=== PATIENT | male | born 1945 | race Caucasian/White ===

== ENCOUNTER → 2024-06-15 06:43 | Outpatient (REF) | payer MEDICARE, OTHER, SELFPAY | LOC: PAVMRI 06:43 | PROVIDERS: ATTENDING PHYSICIAN Family Medicine | DX: M54.16 Radiculopathy, lumbar region (principal) | CPT/HCPCS: 72148 ==

== ENCOUNTER 2024-07-02 18:16 | Emergency (ER) | payer MEDICARE, OTHER, SELFPAY ==
[2024-07-02 18:24] VITALS: BP 163/83
[2024-07-02 18:30] LABS: Glucose - Point of Care 98 mg/dl (70-99)
[2024-07-02 18:35] VITALS: BP 137/72
--- NOTE | 2024-07-02 18:42 | ED.CVA ---
History of Present Illness
General
Chief Complaint: CVA/TIA Symptoms
Source: patient
Exam Limitations: none
Time Seen by Provider: 07/02/24 18:30
Nursing documentation reviewed up to this point in time: agreed with
Onset of Stroke Symptoms
Onset of symptoms known: No
Time pt last seen normal is known: No
History of Present Illness
History of Present Illness:
79-year-old male with a past medical history of hypertension, hyperlipidemia, diabetes, BPH who presents to the emergency room with his and son for evaluation of memory issues. Patient reports that he was in his normal state of health when he
woke up this morning. His says that this evening she noticed that he was having difficulty remembering things�apparently they are scheduled to go on a golf trip in [place] in 3 weeks and patient completely forgot about the trip. Apparently he
went to the bank today and forgot about this. Apparently had a conversation with multiple people and could not recall them. brought him to the emergency room to be assessed. She offers that once she reminded the patient of these things his
memory seems to have returned. Patient says that he feels well he has no complaints here. He denies any headache. Denies any neck pain. Denies any change in his vision or speech. He denies any weakness or numbness in his extremities. He denies
any dizziness or balance issues. He says 'I am not known for my memory.'
Past History
Past History
ED Past Medical History: HTN, Hypercholesterolemia and NIDDM
ED Past Surgical History: Cholecystectomy and Other (Hernia repair, Abd wall repair X 2)
Social History
Tobacco: Non-smoker
Alcohol: None
Personal:
Living: with family
Review of Systems
Review of Systems
All Other Systems: ROS reviewed and negative except as documented in HPI and ROS
Constitutional: Denies fever or chills
Respiratory: Denies cough or trouble breathing
Cardiac: Denies chest pain or palpitations
ABD/GI: Denies abdominal pain, nausea or vomiting
: Denies flank pain
Musculoskeletal: Denies neck pain or back pain
Neurological: Reports other (Memory issue); Denies dizzy, headache, weakness or numbness
Phy Exam
Physical Exam
Physical Exam:
General: Awake, alert, oriented x3; no acute distress
Head: Normocephalic, atraumatic
Eyes: Conjunctiva normal, EOMI, pupils equal round and reactive to light bilaterally
Throat: Airway intact, handling secretions
Neck: Trachea midline, supple without meningismus
Lungs: Clear to auscultation bilaterally, no wheezing, rales, rhonchi
Heart: Regular rate and rhythm, no murmurs, gallops, or rubs
Abd: Soft, non distended, nontender
Neuro: Cranial nerves intact 2 through 12, speech is fluid with no dysarthria or aphasia, no limb ataxia in the upper or lower extremities, motor and sensory function is intact and symmetric upper and lower extremities
Skin: no rash
Extremities: No edema in extremities, equal pulses in all extremities
Scores
NIH Stroke Score
Level of Consciousness: 0 - Alert
LOC Questions: 0-Answers both correctly
LOC Commands: 0-Performs both correctly
Best Horizontal Gaze: 0-Normal
Visual Castaneda: 0=Normal, no visual loss
Facial Palsy: 0=Normal, symmetrical
Motor - Right Arm: 0=No drift 10 seconds
Motor - Left Arm: 0=No drift 10 seconds
Motor - Right Le-No drift 5 seconds
Motor - Left Le-No drift 5 seconds
Limb Ataxia: 0-Absent
Sensation: 0-Normal
Best Language: 0-No aphasia
Dysarthria: 0-Normal
Extinction and Inattention: 0-No abnormality
Total Score:: 0
Heart Failure Risk
Heart Failure Risk Score: Not Applicable
Heart Score for Chest Pain Patients
STEMI patient?: Not applicable
Withdrawal Assessment of Alcohol
Withdrawal Assessment Completed?: Not applicable
Course
Orders/Labs/Results
Orders:
Orders
07/02/24 18:43
CT Head W/o Iv Contrast Urgent
Comment:
Reason For Exam: cognitive/memory issues, acute onset
07/02/24 18:46
Complete Blood Count/With Diff Urgent
Comprehensive Metabolic Panel Urgent
07/02/24 18:56
Electrocardiogram (*1) Urgent
Reason for Study: TIA/Stroke
NEUROLOGY CONSULT Urgent
Consulting Provider: Vinny Giraldo
Was physician already notified: Yes
EKG- Treatment ONCE
Abnormal Lab Results
07/02/24
18:46
MCH 31.5 H pg
(27.0-31.0)
Absolute Monos (auto) 1.1 H 10^3/uL
(0.1-0.6)
Monocytes % 11.0 H %
(1.7-9.3)
BUN 25 H mg/dl
(9-20)
Glucose 102 H mg/dl
(70-99)
Calcium 10.9 H mg/dl
(8.4-10.2)
07/02/24 18:46
07/02/24 18:46
Vital Signs
Initial and Last Documented VS:
Initial Vital Signs
Temp Pulse Resp BP Pulse Ox
36.9 C 58 18 163/83 96
07/02/24 18:24 07/02/24 18:24 07/02/24 18:24 07/02/24 18:24 07/02/24 18:24
Last Documented Vital Signs
Temp Pulse Resp BP Pulse Ox
36.9 C 58 11 137/72 96
07/02/24 18:24 07/02/24 18:45 07/02/24 18:45 07/02/24 18:35 07/02/24 18:45
MDM/Problems Addressed
Differential Diagnosis Includes:
Stroke/TIA, transient global amnesia, seizure, mild dementia, simple forgetfulness
MDM/Problems Addressed:
79-year-old male presents for evaluation after memory issues as described above. He feels well here denies acute complaints. Hypertensive in triage normalized by my assessment, otherwise normal vitals. Physical exam as above. With no reported
symptoms or objective deficits no stroke alert called. NIH stroke score would be 0. Will check basic screening labs, CT head. Case discussed with neurology for assessment.
Initial labs reviewed and are unremarkable. Awaiting CT head. Neurology evaluated patient�apparently symptoms started after sex, per neurology postcoital memory issues not uncommon and suspect this is likely the cause. If CT negative can be
discharged.
CT head negative. Patient awake and alert at baseline, normal vitals. Discussed with neurology okay for discharge can follow-up as an outpatient with his primary doctor. Spoke to patient and about return precautions including recurrence of
symptoms or any other issues. All questions answered.
Chronic conditions affecting care:
Hypertension, hyperlipidemia, diabetes�higher risk for stroke
Acute Exacerbation and/or Progression of Chronic Illness:
Acutely hypertensive resolved without intervention�continue to monitor but now additional antihypertensive indicated at present
Acute Exacerbation and/or Progression of Chronic Illness: HTN
*Radiology
Radiology exam reviewed: radiology read reviewed
*Pulse Oximetry
Patient hypoxic: no
*EKG
Interpreted by ED Provider?: Yes
Heart Rate: 57
Rate: bradycardiac
Rhythm: sinus
[place]: left axis deviation
Interval: normal interval
QRS Pattern: normal QRS
Ischemia: other (Nonspecific T wave abnormality)
*Critical Care Note
Total Time (30-74mins, 75-104mins- exclusive of procedures): Not Applicable
Data Reviewed
Review of Other/Old Records Reveals: Labs and Records
Source: patient and records
Patient Management
Discussion with other providers: Processor Helper (Discussed with neurology)
ED Attending Note
-
Portions of this chart may have been created with voice recognition software.� Occasional wrong word or��sound alike� substitutions may have occurred due to the inherent limitations of voice recognition software.
Discharge Plan
Departure
Patient Disposition: Home (Routine Discharge)
Date of Disposition: 07/02/24
Time of Disposition: 20:23
Patient with high blood pressure during this ER visit?: Yes
Discharge Problem:
Transient memory loss
Instructions: Mild cognitive impairment
Prescriptions:
No Action
lisinopril 20 MG tablet
20 mg PO DAILY
finasteride 5 MG tablet
5 mg PO DAILY
glipizide 5 MG tablet
5 mg PO DAILY
coenzyme Q15-jtuounc E 1 CAP capsule
200 mg PO DAILY
fenofibric acid (choline) 135 MG capsule,delayed release(DR/EC)
135 mg PO DAILY
Systane Balance 10 ML drops
1 drp BOTH EYES BID
Myrbetriq 50 MG tablet extended release 24 hr
50 mg PO DAILY
PreserVision AREDS-2 1 EACH capsule
1 ea PO BID
amlodipine 5 MG tablet
5 mg PO DAILY
multivitamin with folic acid [Tab-A-Briana] 1 TABLET tablet
1 tab PO DAILY
Nexletol
180 mg PO DAILY
magnesium
1 tab PO DAILY
pantoprazole 40 MG tablet,delayed release (DR/EC)
40 mg PO DAILY
ondansetron 4 mg tablet,disintegrating
4 mg PO Q8H PRN (Reason: nausea and vomiting) Qty: 7 0RF
ibuprofen 400 mg tablet
400 mg PO Q6H PRN (Reason: Pain) Qty: 14 0RF
oxycodone-acetaminophen [Percocet] 5-325 mg tablet
1 tab PO Q6H PRN (Reason: Pain) Qty: 7 0RF
Activity Restrictions/Additional Instructions:
Thank you for visiting the Emergency Department at [facility].
1. Please schedule a follow up appointment as directed. Call first thing tomorrow morning to make an appointment.
2. If indicated, please take your medications as instructed and indicated on discharge paperwork.
3. If any of your symptoms do not improve, or persist, or become more severe within 6-12 hours, please return to the emergency department for further care.
4. Please return to the emergency department if you develop a headache, neck pain/stiffness, fever greater than 100.4F, chest pain, shortness of breath, persistent nausea, vomiting, slurred speech, difficulty walking, numbness/tingling, weakness,
signs of infection or any other symptoms that are worrisome to you.
Please call [phone] if you have any questions.
Interventions
Interventions:
*Risk Screen - Suicide Last Done: 07/02/24 18:24
*General Assessment Last Done: 07/02/24 18:24
*Neglect/Abuse Screening Last Done: 07/02/24 18:24
ED- Pulmonary Assessment Last Done: 07/02/24 18:43
ED- Neurological Assessment Last Done: 07/02/24 18:43
ED- Cardiac Assessment Last Done: 07/02/24 18:43
Discharge Date and Time
Print Language: AMHARIC
[2024-07-02 18:50] LABS: % Basophils 0.9 % (0-2); % Eosinophils 5.8 % (0-6); % Immature Granulocytes 0.4 % (0-0.5); % Lymphocytes 28.5 % (20.5-51.1); % Neutrophils 53.4 % (42.2-75.2); Absolute Basophils 0.1 10^3/uL (0-0.2); Absolute Eosinophils 0.6 10^3/uL (0-0.7); Absolute Lymphocytes 2.7 10^3/uL (1.2-3.4); Absolute Monocytes 1.1 10^3/uL (0.1-0.6); Absolute Neutrophils 5.1 10^3/uL (1.4-6.5); Hematocrit 44.7 % (39.0-52.0); Hemoglobin 15.4 g/dL (13.0-18.0); Mean Corp Hgb Conc. 34.5 g/dL (33.0-37.0); Mean Corpuscular Hgb 31.5 pg (27.0-31.0); Mean Corpuscular Volume 91.4 fL (80.0-94.0); Mean Platelet Volume 10.1 fL (7.4-10.4); Nucleated Red Blood Cells % 0 % (-); Platelet Count 256 10^3/uL (130-400); Red Blood Cell Count 4.89 10^6/uL (4.70-6.10); Red Cell Dist. Width 13.3 % (11.5-14.5); White Blood Cell Count 9.5 10^3/uL (4.8-10.8)
[2024-07-02 19:00] VITALS: BP 142/70
[2024-07-02 19:07] LABS: ALT (SGPT) 26 U/L (0-50); AST (SGOT) 30 U/L (17-59); Albumin 4.7 g/dl (3.5-5.0); Alkaline Phosphatase 70 U/L (38-126); Blood Urea Nitrogen 25 mg/dl (9-20); Calcium 10.9 mg/dl (8.4-10.2); Carbon Dioxide 26 mmol/L (22-30); Chloride 105 mmol/L (98-107); Glucose 102 mg/dl (70-99); Potassium 4.1 mmol/L (3.5-5.1); Sodium 138 mmol/L (135-145); Total Bilirubin 0.4 mg/dl (0.2-1.3); Total Protein 7.5 g/dl (6.3-8.2); eGFR 55.19
== END 2024-07-02 20:37 | disposition home or self-care (01) ==
LOC: EMR 18:16
PROVIDERS: CONSULT PHYSICIAN Psychiatry & Neurology Neurology; EMERGENCY PHYSICIAN Emergency Medicine; FAMILY PHYSICIAN Family Medicine
DX: R41.3 Other amnesia (principal); I10 Essential (primary) hypertension; E78.00 Pure hypercholesterolemia, unspecified; E11.9 Type 2 diabetes mellitus without complications; N40.0 Benign prostatic hyperplasia without lower urinary tract symptoms
CPT/HCPCS: 99285; 70450; 80053; 82962; 85025; 93005

== ENCOUNTER 2024-07-10 11:32 | Inpatient (IN) | payer MEDICARE, OTHER, SELFPAY ==
[2024-07-10] VITALS (15 sets, daily range): BP systolic 65–167; BP diastolic 17–80; BMI 27.1; BMI 25.6
[2024-07-10 05:46] LABS: % Basophils 1.1 % (0-2); % Eosinophils 6.2 % (0-6); % Immature Granulocytes 0.4 % (0-0.5); % Lymphocytes 25.7 % (20.5-51.1); % Monocytes 13.8 % (1.7-9.3); % Neutrophils 52.8 % (42.2-75.2); Absolute Basophils 0.1 10^3/uL (0-0.2); Absolute Eosinophils 0.6 10^3/uL (0-0.7); Absolute Lymphocytes 2.4 10^3/uL (1.2-3.4); Absolute Monocytes 1.3 10^3/uL (0.1-0.6); Hematocrit 43.9 % (39.0-52.0); Hemoglobin 14.9 g/dL (13.0-18.0); Mean Corp Hgb Conc. 33.9 g/dL (33.0-37.0); Mean Corpuscular Hgb 32.3 pg (27.0-31.0); Mean Platelet Volume 10.4 fL (7.4-10.4); Nucleated Red Blood Cells % 0 % (-); Platelet Count 240 10^3/uL (130-400); Red Blood Cell Count 4.62 10^6/uL (4.70-6.10); Red Cell Dist. Width 13.2 % (11.5-14.5); White Blood Cell Count 9.5 10^3/uL (4.8-10.8)
[2024-07-10 06:00] LABS: ALT (SGPT) 21 U/L (0-50); AST (SGOT) 24 U/L (17-59); Albumin 4.2 g/dl (3.5-5.0); Alkaline Phosphatase 71 U/L (38-126); Blood Urea Nitrogen 31 mg/dl (9-20); Calcium 10.5 mg/dl (8.4-10.2); Carbon Dioxide 23 mmol/L (22-30); Chloride 108 mmol/L (98-107); Estimated Creatinine Clearance 37 ml/min; Glucose 182 mg/dl (70-99); Potassium 4.1 mmol/L (3.5-5.1); Sodium 138 mmol/L (135-145); Total Bilirubin 0.3 mg/dl (0.2-1.3); Total Protein 6.7 g/dl (6.3-8.2); eGFR 50.49
--- NOTE | 2024-07-10 06:11 | ED.GENMED ---
History of Present Illness
General
Chief Complaint: Rectal Bleeding
Source: patient
Exam Limitations: none
Time Seen by Provider: 07/10/24 05:59
History of Present Illness
History of Present Illness:
See MDM
Past History
Past History
ED Past Medical History: GERD, HTN, Hypercholesterolemia and NIDDM
ED Past Surgical History: Cholecystectomy and Other (Hernia repair, Abd wall repair X 2)
Social History
Tobacco: Non-smoker
Alcohol: None
Personal:
Living: with family
Phy Exam
Physical Exam
Physical Exam:
See MDM
Course
Orders/Labs/Results
Orders:
Orders
07/10/24 05:26
CMP [Comprehensive Metabolic Panel] Urgent
Complete Blood Count/With Diff Urgent
07/10/24 Breakfast
Clear Liquid
Clear Liquids: No red liquids
07/10/24 07:26
Consult Gastroenterology [GASTROINTESTINAL CONSULT] Urgent
Consulting Provider: Jg Guzmán
Was physician already notified: Yes
07/10/24 10:27
IV Insert/Care/Rem.- Treatment PRN
Pantoprazole 80 mg/ 100 mL 8 mg/hr NOW X 1 BAG Pantoprazole 80 mg/100 ml Nss [Protonix] 80 mg in 100 ml IV NOW
Pantoprazole [Protonix IV] 80 mg IV NOW STA
Abnormal Lab Results
07/10/24
05:26
RBC 4.62 L 10^6/uL
(4.70-6.10)
MCV 95.0 H fL
(80.0-94.0)
MCH 32.3 H pg
(27.0-31.0)
Absolute Monos (auto) 1.3 H 10^3/uL
(0.1-0.6)
Monocytes % 13.8 H %
(1.7-9.3)
Eosinophils % 6.2 H %
(0-6)
Chloride 108 H mmol/L
(98-107)
BUN 31 H mg/dl
(9-20)
Creatinine 1.4 H mg/dL
(0.7-1.3)
Glucose 182 H mg/dl
(70-99)
Calcium 10.5 H mg/dl
(8.4-10.2)
07/10/24 05:26
07/10/24 05:26
Vital Signs
Initial and Last Documented VS:
Initial Vital Signs
Temp Pulse Resp BP Pulse Ox
97.7 F 59 18 167/73 97
07/10/24 04:28 07/10/24 04:28 07/10/24 04:28 07/10/24 04:28 07/10/24 04:28
Last Documented Vital Signs
Temp Pulse Resp BP Pulse Ox
97.7 F 57 16 131/79 98
07/10/24 04:28 07/10/24 08:17 07/10/24 08:17 07/10/24 08:17 07/10/24 08:17
MDM/Problems Addressed
Differential Diagnosis Includes:
HPI and MDM Narrative:
79-year-old male presenting with mild abdominal cramping that is associated with several episodes of bright red rectal bleeding. Since 3 AM, patient has had about 6 bouts of bloody diarrhea. Patient states majority of the defecation is blood and
clots. He has a history of diverticulosis and history of esophageal ulcer. Patient states this feels similar to her prior episode of esophageal ulcer where he was admitted. He is no longer on NSAIDs and denies being on blood thinners
Patient states his last colonoscopy was about 6 years ago and there was no polyps
Physical exam
General: Well appearing and non-toxic
HEENT: protecting airway
Neck: appears supple
CV: No evidence of cyanosis
Resp: No accessory muscle use
Abd: Non-distended. No significant tenderness elicited
Rectal: External exam within normal limit
Extremities: No deformities
Neuro: alert
Psych: Normal affect
Skin: Intact
Problems Addressed including Acute and Chronic Conditions affecting care:
1. Bright red rectal bleeding
Acuity: acute
Prognosis: stable
Details: Hemoglobin currently stable. However given his prior history, will discuss case with GI. Given no significant abdominal tenderness, CT abdomen/pelvis low yield
Updates
7:30 AM on reevaluation, patient went to have another bowel movement but instead was passing gas which is reassuring. Will have GI evaluate given his prior history
10 AM Case discussed with GI. Given his history and the magalis blood on rectal exam, GI recommending admitting for observation
10:30 AM patient provided a stool sample and it is now consistent with melena. Given his prior history of esophageal ulcer, will start PPI drip. Patient given PPI bolus as well
Differential Diagnosis (but not limited to): Esophageal ulcer, diverticulosis
Testing considered: CT abdomen/pelvis
Drug therapy (if applicable): OTC meds, please see d/c instruction regarding Rx drugs
Amount and/or Complexity of Data Reviewed
Clinical info obtained from: Patient
External data reviewed: Similar episodes in 2020 where he was found to have esophageal ulcer
Labs I independently reviewed (but not limited to): Hemoglobin stable
Radiology: N/A
Pulse Ox: not hypoxic
EKG independently reviewed: N/A
Patcher [place]: N/A
Critical Care: N/A
Risk of Complication:
Social Determinants of health: Good social support
Discussed with other providers: Gastroenterology, hospitalist
Escalation of Care includes Admit/Obs: given the multiple episodes of magalis blood, gastroenterology suggesting admitting
Occasional wrong word or 'sound a like' substitutions may have occurred due to the inherent limitations of voice recognition software. Read the chart carefully and recognize, using context, where substitutions have occurred.
*Critical Care Note
Total Time (30-74mins, 75-104mins- exclusive of procedures): Not Applicable
ED Attending Note
-
Portions of this chart may have been created with voice recognition software.� Occasional wrong word or��sound alike� substitutions may have occurred due to the inherent limitations of voice recognition software.
Discharge Plan
Departure
Patient Disposition: Admit
Date of Disposition: 07/10/24
Time of Disposition: 10:07
Admit to: Med/Surg
Presentation/result/management discussed w/ accepting MD/DO: Hospitalist
Discharge Problem:
Acute lower GI bleeding
Prescriptions:
No Action
lisinopril 20 MG tablet
20 mg PO DAILY
finasteride 5 MG tablet
5 mg PO DAILY
fenofibric acid (choline) 135 MG capsule,delayed release(DR/EC)
135 mg PO DAILY
mirabegron [Myrbetriq] 50 MG tablet extended release 24 hr
50 mg PO DAILY
amlodipine 5 MG tablet
5 mg PO HS
pantoprazole 40 MG tablet,delayed release (DR/EC)
40 mg PO DAILY
glipizide 5 mg Tablet Extended Release 24hr
5 mg PO DAILY
acetaminophen [Tylenol Extra Strength] 500 mg Tablet
1,000 mg PO Q6HPRN PRN (Reason: mild pain)
magnesium oxide 400 mg (241.3 mg magnesium) Tablet
400 mg PO DAILY
coenzyme Q10 [CoQ-10] 100 mg Capsule
100 mg PO DAILY
Systane (PF) 0.4-0.3 % [place]
1 drp BOTH EYES BIDPRN PRN (Reason: dry eyes)
PreserVision AREDS 4,296 mcg-226 mg-90 mg Capsule
1 cap PO BID
icosapent ethyl [Vascepa] 1 gram Capsule
2 g PO BID
dapagliflozin propanediol [Farxiga] 10 mg Tablet
10 mg PO DAILY
Cbd capsule
50 mg PO DAILYPRN PRN (Reason: discomfort)
fluticasone propionate [Flonase] 50 mcg/actuation [place],Suspension
1 spray INTRANASAL DAILYPRN PRN (Reason: conjestion)
Referrals:
Sadi Kuo MD [Family Provider] -
Interventions
Interventions:
*Risk Screen - Suicide Last Done: 07/10/24 04:28
*General Assessment Last Done: 07/10/24 04:28
*Neglect/Abuse Screening Last Done: 07/10/24 04:28
ED- Fall Risk Assessment Last Done: 07/10/24 04:28
*ED COVID-19 Vaccine History Last Done: 07/10/24 04:28
RT-Lffvsl-Lnprrnliyv Assessment Last Done: 07/10/24 05:42
ED- Cardiac Assessment Last Done: 07/10/24 05:42
ED- Pulmonary Assessment Last Done: 07/10/24 05:42
Discharge Date and Time
Print Language: MICRONESIAN
--- NOTE | 2024-07-10 09:43 | CON.GI ---
Addendum entered and electronically signed by Jg Guzmán MD 07/10/24 16:42:
I saw and examined the patient.
The APPLE PACKING HEADER's note was reviewed and I agree with the note.
-- Rectal bleeding. Last colonoscopy 2018-diverticulosis.
--Mild left lower quadrant discomfort
-- History of esophagitis
plan
Likely etiology of rectal bleeding-diverticular disease vs ischemic colitis. Hb stable. Vital stable
Continue monitor Hb
Clear liquid diet
If patient continues to have rectal bleeding will consider CTA vs colonoscopy -inpatient
will follow
Addendum entered and electronically signed by TRISTIN Ford 07/10/24 10:40:
Asked to see patient at 1015. Patient had large BM of soft formed stool that was maroon/red in color. No pain. Visualized stool myself. Will repeat labs. Discussed with Dr. Guzmán. Ok for Pantoprazole 40 mg IV BID. Otherwise as per plan. Type and
Screen being ordered by ER.
Original Note:
Consultation
-
Date/Time Consultation Requested: 07/10/24 07
Date/Time Consultation Performed: 07/10/24 0930
Requesting Provider: Dr. Kimbrough
Performing Provider: Dr. Guzmán/TRISTIN Caceres
Reason for Consultation: rectal bleeding
Medical History
Chief Complaint / HPI
Chief Complaint: rectal bleeding
History of Present Illness:
79-year-old male with past medical history of hypertension, chronic low back pain, diabetes, hyperlipidemia, BPH, kidney stones, diverticulosis, history LA grade C erosive esophagitis (2020) who was on pantoprazole 40 mg daily and does not take any
NSAIDs who presents to the emergency room with acute onset of rectal bleeding. Asked to evaluate for the same. The patient states that he just returned from [facility] from a vacation. On Saturday he started with acute onset of loose stools
approximately 3 times a day. He did have to cancel travel plans up to [facility]. His did go up to [facility] however he stayed home. He states that he would have loose stools with some cramping. He denied any fevers, chills, nausea,
vomiting. He does not recall eating anything spoiled, no new medications. This was not debilitating. He states that last night he awoke approximately 3 AM and thought he had gas. He went to use the restroom however passed bright red blood per
rectum and possibly clots. This happened approximately 3 more times before he proceeded to the emergency room. He states that while he was checking in he had another episode. He does not recall ever seeing any stool mixed in with this. He had 2
more episodes while still in the ER. This happened over a duration of approximately 4 hours. He has not had any further episodes since approximately 7 AM. He has some mild left lower quadrant tenderness but no significant pain. The patient does
have a history of bleeding in the past that was attributed to an upper GI bleed in 2020 time it was melena and he had an EGD that showed LA grade C esophagitis/gastric erosions secondary to NSAID use. Repeat endoscopy documented healing. Patient
denies any chest pain, shortness of breath, dizziness.
Past Medical History
Past Medical History: GERD, HTN, Hypercholesterolemia, IDDM and Other (LA grade C erosive esophagitis, diverticulosis, BPH, chronic back pain, kidney stones)
Past Surgical History: Cholecystectomy and Orthopedic (Back surgery)
Social History
Tobacco: Non-Smoker
Alcohol: None
Drug: None
Personal:
Living: With Family
Employment: Retired
Family History
Family History: Other (Family history gastrointestinal malignancy or IBD)
Allergies / Home Medications
Allergy/AdvReac Type Severity Reaction Status Date / Time
apple Allergy Swelling Verified 07/10/24 04:27
venom-honey bee Allergy localized Verified 07/10/24 04:27
[bee venom (honey bee)] swelling
�Medication �Instructions �Recorded
fenofibric acid (choline) 135 mg 135 mg PO DAILY High cholesterol 10/14/20
capsule,delayed release
finasteride 5 mg tablet 5 mg PO DAILY Urinary issue 10/14/20
lisinopril 20 mg tablet 20 mg PO DAILY Blood pressure 10/14/20
mirabegron 50 mg tablet,extended 50 mg PO DAILY Urinary issue 10/14/20
release 24 hr (Myrbetriq)
amlodipine 5 mg tablet 5 mg PO HS Blood pressure 05/18/21
pantoprazole 40 mg tablet,delayed 40 mg PO DAILY 11/21/22
release
Cbd 50 mg PO DAILYPRN PRN discomfort 07/10/24
acetaminophen 500 mg tablet 1,000 mg PO Q6HPRN PRN mild pain 07/10/24
(Tylenol Extra Strength)
coenzyme Q10 100 mg capsule 100 mg PO DAILY 07/10/24
(CoQ-10)
dapagliflozin propanediol 10 mg 10 mg PO DAILY 07/10/24
tablet (Farxiga)
fluticasone propionate 50 1 spray intranasal DAILYPRN PRN 07/10/24
mcg/actuation nasal conjestion
spray,suspension
glipizide 5 mg tablet, extended 5 mg PO DAILY 07/10/24
release 24 hr
icosapent ethyl 1 gram capsule 2 g PO BID 07/10/24
(Vascepa)
magnesium oxide 400 mg (241.3 mg 400 mg PO DAILY 07/10/24
magnesium) tablet
peg 400-propylene glycol (PF) 0.4 1 drp BOTH EYES BIDPRN PRN dry eyes 07/10/24
%-0.3 % eye drops in a dropperette
(Systane (PF))
vitamins A,C,D-wyzf-pzpcsb 4,296 1 cap PO BID 07/10/24
mcg-226 mg-90 mg capsule
(PreserVision AREDS)
Review of Systems
-
All other systems: A 12 pt ROS was Negative except as stated above in HPI
Vital Signs
Temp Pulse Resp BP Pulse Ox
97.7 F 57 16 131/79 98
07/10/24 04:28 07/10/24 08:17 07/10/24 08:17 07/10/24 08:17 07/10/24 08:17
Physical Exam
Exam
General: No Apparent Distress
HEENT: Anicteric
Respiratory: Clear
Cardiac: Regular Rhythm
GI: Soft, Non Distended, Normal Bowel Sounds and Tender (Mild left lower quadrant tenderness)
Rectal: Red (Alejo red blood on rectal exam, enlarged prostate) and Hem Positive
Musculoskeletal: No Edema
Skin: Warm and Dry
Neuro: AO x 3
Psych: Calm
Results
WBC 9.5 10^3/uL (4.8-10.8) 07/10/24 05:26
Hgb 14.9 g/dL (13.0-18.0) 07/10/24 05:26
Hct 43.9 % (39.0-52.0) 07/10/24 05:26
MCV 95.0 fL (80.0-94.0) H 07/10/24 05:26
Plt Count 240 10^3/uL (130-400) 07/10/24 05:26
Absolute Neuts (auto) 5.0 10^3/uL (1.4-6.5) 07/10/24 05:26
Sodium 138 mmol/L (135-145) 07/10/24 05:26
Potassium 4.1 mmol/L (3.5-5.1) 07/10/24 05:26
Chloride 108 mmol/L (98-107) H 07/10/24 05:26
Carbon Dioxide 23 mmol/L (22-30) 07/10/24 05:26
BUN 31 mg/dl (9-20) H 07/10/24 05:26
Creatinine 1.4 mg/dL (0.7-1.3) H 07/10/24 05:26
Calcium 10.5 mg/dl (8.4-10.2) H 07/10/24 05:26
Total Bilirubin 0.3 mg/dl (0.2-1.3) 07/10/24 05:26
AST 24 U/L (17-59) 07/10/24 05:26
ALT 21 U/L (0-50) 07/10/24 05:26
Alkaline Phosphatase 71 U/L (38-126) 07/10/24 05:26
Diagnostic Image Results:
none
Prior GI Procedures:
EGD 09/11/21 - Normal mucosa was found in the entire esophagus.
- Z-line irregular, 40 cm from the incisors. This was
biopsied with a cold forceps for histology and
evaluation to rule out Nelson's Esophagus.
- Normal mucosa was found in the entire stomach.
Biopsies were taken for Helicobacter pylori testing.
- Bilious gastric fluid. Fluid aspiration performed.
- Normal examined duodenum. Biopsies for evaluation of
celiac disease.
EGD: 05/19/21 - LA Grade C erosive esophagitis with no active
bleeding.
- Z-line irregular, in the distal esophagus.
- Medium-sized hiatal hernia.
- Erythematous mucosa in the stomach. Biopsied.
- Normal examined duodenum.
EGD: 08/20/2019 normal esophagus. Biopsied. Z line irregular, 37 cm from the incisors. Biopsy. Small hiatal hernia. Widely patent and non-obstructing Schatzki ring. Mild antral gastritis. Biopsied. Bilious gastric fluid. Fluid aspiration
performed. Normal examined duodenum. Biopsied.
Path: Mild chronic gastritis. Negative for H. pylori or celiac disease. Negative for intestinal metaplasia and dysplasia. Squamous mucosa with acute erosive esophagitis at the GE junction. Reactive epithelial changes in squamous mucosa of
esophagus.
Colonoscopy:
05/27/2019 diverticulosis in the sigmoid colon, descending colon, and transverse colon. Nonbleeding internal hemorrhoids. Tattoo seen in the sigmoid colon. Tattoo site appeared normal. Examined portion of the ileum normal.
10/27/2010 diverticulosis entire examined colon. Internal hemorrhoids. Ileum normal.
Assessment / Plan
-
79-year-old male with past medical history of hypertension, chronic low back pain, diabetes, hyperlipidemia, BPH, kidney stones, diverticulosis, history LA grade C erosive esophagitis (2020) who was on pantoprazole 40 mg daily and does not take any
NSAIDs who presents to the emergency room with acute onset of rectal bleeding. Asked to evaluate for the same. last night he awoke approximately 3 AM and thought he had gas. He went to use the restroom however passed bright red blood per rectum
and possibly clots. This happened approximately 3 more times before he proceeded to the emergency room. He states that while he was checking in he had another episode. He does not recall ever seeing any stool mixed in with this. He had 2 more
episodes while still in the ER. This happened over a duration of approximately 4 hours. He has not had any further episodes since approximately 7 AM. He has some mild left lower quadrant tenderness but no significant pain. Patient's vital signs
are stable. WBC 9.5, hemoglobin 14.9, hematocrit 43.9, MCV 95.0, MCH 32.3, platelet count 240, sodium 138, potassium 4.1, chloride 108, CO2 23, BUN 31, creatinine 1.4, glucose 182, total bilirubin 0.3, AST 24, ALT 21, alk phos 71. Rectal exam
performed by myself alejo red blood.
Impression:
Rectal bleeding-> acute onset, approximately 3 AM with 7 episodes. Alejo red blood with clots. No antiplatelet therapy or anticoagulation. Mild left lower quadrant tenderness. Loose stools for 2 days leading up to this event.
History of diverticulosis
Prior history of LA grade C erosive esophagitis 2020 and gastric erosions secondary to NSAID use (now off) status post documentation of healing-> currently on PPI
Other Dx:
Hypertension
Diabetes
Hyperlipidemia
BPH
Kidney stones
Chronic low back pain
Plan:
-Given multiple episodes of rectal bleeding with still alejo blood on rectal exam would observe patient, discussed with ER attending who will discuss with internal medicine.
-Would allow clear liquid diet, no reds
-If with signs of active bleeding would proceed with imaging. Would most likely need a nuclear med bleeding study as creatinine clearance 37. Discussed with patient if he has signs of active bleeding to call nursing immediately.
-Repeat CBC every 8 hours
-If patient has no further bleeding and starts to have brown stool would then advance to full liquid diet and low residue diet.
-If with worsening pain would get CT imaging plus or minus contrast given renal status.
-Consider colonoscopy as an outpatient in 8 weeks
-Further recommendations to be forthcoming.
-
-
Thank you for consultation and allowing me to participate in the patient's care. Please call the smoke control supervisor GI physician during the after hours with any questions or concerns.
--- NOTE | 2024-07-10 10:55 | HPS.HSE ---
Family Physician
-
Family Physician: Sadi Kuo
Chief Complaint
-
Rectal bleeding
History of Present Illness
Patient 79 years old male with history of hypertension, diabetes mellitus, hyperlipidemia, BPH, nephrolithiasis, diverticular disease, chronic low back pain, esophagitis, presented to the hospital with bright blood per rectum. Patient was on
vacation to [place] recently and when he came back had some loose stools associated with some abdominal cramping but no fevers or chills but last woke up and started having bright blood per rectum and some clot and it happened several times
throughout the rest of the day so decided to come to the hospital. Denies chest pain or shortness of breath. No anticoagulants or NSAIDs. While in the ER he had another large episode of maroon red-colored stool. GI evaluated patient in the ER.
Hemoglobin 14.9 and 13.9 today. He was referred to hospitalist service for further evaluation.
Medical History
Past Medical History
Past Medical History: Reports Other (Hypertension, hyperlipidemia BPH, chronic lower back pain, nephrolithiasis diverticulosis, history of LA grade C erosive esophagitis.)
Past Surgical History: Reports Other (Cholecystectomy, back surgery in the past.)
Social History
Tobacco: Non-smoker
Alcohol: None
Drug: None
Family History
Family History: Other (Denies colon cancer or gastric cancer. He states maybe father had liver cancer but unsure.)
Allergies / Home Medications
Allergies reflects when Allergies were last updated in [email or web address].
Home Medications with original date entered in [email or web address]
Allergy/Medication List:
Allergies
Allergy/AdvReac Type Severity Reaction Status Date / Time
apple Allergy Swelling Verified 07/10/24 04:27
venom-honey bee Allergy localized Verified 07/10/24 04:27
[bee venom (honey bee)] swelling
Home Medications
fenofibric acid (choline) 135 mg capsule,delayed release 135 mg PO DAILY High cholesterol 10/14/20
finasteride 5 mg tablet 5 mg PO DAILY Urinary issue 10/14/20
lisinopril 20 mg tablet 20 mg PO DAILY Blood pressure 10/14/20
mirabegron 50 mg tablet,extended release 24 hr (Myrbetriq) 50 mg PO DAILY Urinary issue 10/14/20
amlodipine 5 mg tablet 5 mg PO HS Blood pressure 05/18/21
pantoprazole 40 mg tablet,delayed release 40 mg PO DAILY 11/21/22
Cbd 50 mg PO DAILYPRN PRN discomfort 07/10/24
acetaminophen 500 mg tablet (Tylenol Extra Strength) 1,000 mg PO Q6HPRN PRN mild pain 07/10/24
coenzyme Q10 100 mg capsule (CoQ-10) 100 mg PO DAILY 07/10/24
dapagliflozin propanediol 10 mg tablet (Farxiga) 10 mg PO DAILY 07/10/24
fluticasone propionate 50 mcg/actuation nasal spray,suspension 1 spray intranasal DAILYPRN PRN conjestion 07/10/24
glipizide 5 mg tablet, extended release 24 hr 5 mg PO DAILY 07/10/24
icosapent ethyl 1 gram capsule (Vascepa) 2 g PO BID 07/10/24
magnesium oxide 400 mg (241.3 mg magnesium) tablet 400 mg PO DAILY 07/10/24
peg 400-propylene glycol (PF) 0.4 %-0.3 % eye drops in a dropperette (Systane (PF)) 1 drp BOTH EYES BIDPRN PRN dry eyes 07/10/24
vitamins A,C,X-yggz-ouzzmd 4,296 mcg-226 mg-90 mg capsule (PreserVision AREDS) 1 cap PO BID 07/10/24
Review of Systems
-
A 12 point ROS was completed and negative except as noted: Yes
Physical Exam
Vital Signs
Vital Signs
Temp Pulse Resp BP Pulse Ox
97.7 F 57 16 131/79 98
07/10/24 04:28 07/10/24 08:17 07/10/24 08:17 07/10/24 08:17 07/10/24 08:17
Physical exam:
General: Acutely ill
HEENT: Normocephalic, Atraumatic and Dry Mucous Membranes
Respiratory: Clear to Auscultation; Negative Wheezes, Rales or Rhonchi
Cardiac: Regular Rhythm and S1/S2
GI: Soft, Nontender and Nondistended
Musculoskeletal: No Clubbing, No Cyanosis and No Edema
Neuro: Awake, Alert and Oriented
Psych: Calm
Physical Exam
General: Other
Laboratory Results
-
07/10/24 05:26
Laboratory Results
Total Bilirubin 0.3 mg/dl (0.2-1.3) 07/10/24 05:26
AST 24 U/L (17-59) 07/10/24 05:26
ALT 21 U/L (0-50) 07/10/24 05:26
Alkaline Phosphatase 71 U/L (38-126) 07/10/24 05:26
Data Reviewed
-
Lab Data: Labs Reviewed by me
Impression/Plan
-
IMPRESSION:
Patient 79 years old male with multiple comorbidities presented to the hospital with acute GI bleed. Patient increased risk morbidity given acute presentation therefore will need to be treated in and monitor accordingly.
PLAN:
Acute GI bleed:
Probably lower source but cannot rule out upper source
Clear liquid diet for now
IV fluid
Vascular access
Monitor hemoglobin
PPI
GI consulted
Hypertension:
Continue home antihypertensives.
Monitor blood pressure and adjust medications accordingly.
Hyperlipidemia:
Continue home statins
Diabetes mellitus type 2:
Diabetic diet
Will check blood sugars before meals and at bedtime
Will add insulin sliding scale
Will monitor blood sugar and adjust medications accordingly
Will update hemoglobin A1c in a.m.
Will continue home diabetic regimen
BPH:
Continue finasteride
DVT prophylaxis:
SCDs
CODE STATUS
Full code
Time spent 75 minutes
[2024-07-10] MEDS: PROTONIX IV 80 MG IV (10:56)
[2024-07-10 11:00] LABS: Hematocrit 40.8 % (39.0-52.0); Hemoglobin 13.9 g/dL (13.0-18.0); Mean Corp Hgb Conc. 34.1 g/dL (33.0-37.0); Mean Corpuscular Hgb 31.3 pg (27.0-31.0); Mean Corpuscular Volume 91.9 fL (80.0-94.0); Mean Platelet Volume 10.5 fL (7.4-10.4); Platelet Count 262 10^3/uL (130-400); Red Blood Cell Count 4.44 10^6/uL (4.70-6.10); Red Cell Dist. Width 13.3 % (11.5-14.5)
[2024-07-10] MEDS: PROTONIX 100 IV (11:01)
[2024-07-10 11:06] LABS: INR 1.06; PT 13.6 Sec (11.4-14.6)
[2024-07-10 13:15] LABS: Glucose - Point of Care 114 mg/dl (70-99)
--- NOTE | 2024-07-10 13:20 | PTCARENOTE ---
Received pt from ER.Pt awake, alert and oriented. Pt c/o discomfort in middle abd, tolerable at this time. Pt VSS 97% on RA. Pt had 2 episodes of soft maroon colored stools, 2 noted in ER. Pt has repeat hgb at 4pm. Pt has protonix gtt and ivf
infusing per orders. Pt oriented to room, call perry within reach, plan of care continues.
[2024-07-10] MEDS: NOVOLOG FLEXPEN-LOW RESISTANCE SC ×2 (13:30→17:16)
[2024-07-10] MEDS: LR 1000 IV (13:33)
[2024-07-10 16:55] LABS: Hematocrit 40.6 % (39.0-52.0); Hemoglobin 14.1 g/dL (13.0-18.0); Mean Corp Hgb Conc. 34.7 g/dL (33.0-37.0); Mean Corpuscular Hgb 31.8 pg (27.0-31.0); Mean Corpuscular Volume 91.4 fL (80.0-94.0); Mean Platelet Volume 10.2 fL (7.4-10.4); Platelet Count 231 10^3/uL (130-400); Red Blood Cell Count 4.44 10^6/uL (4.70-6.10); Red Cell Dist. Width 13.3 % (11.5-14.5); White Blood Cell Count 10.9 10^3/uL (4.8-10.8)
[2024-07-10 17:12] LABS: Glucose - Point of Care 106 mg/dl (70-99)
[2024-07-10] MEDS: NSS (PRESERVATIVE FREE) 10 ML IV (21:13)
[2024-07-10] MEDS: NORVASC 5 MG PO (21:13)
[2024-07-10] MEDS: PROTONIX IV 40 MG IV (21:13)
[2024-07-11 00:30] LABS: Glucose - Point of Care 96 mg/dl (70-99)
[2024-07-11] MEDS: LR 1000 IV (01:28)
[2024-07-11 07:17] VITALS: BP 133/72
[2024-07-11 07:54] LABS: Hematocrit 36.6 % (39.0-52.0); Hemoglobin 12.5 g/dL (13.0-18.0); Mean Corp Hgb Conc. 34.2 g/dL (33.0-37.0); Mean Corpuscular Hgb 31.4 pg (27.0-31.0); Mean Platelet Volume 10.5 fL (7.4-10.4); Platelet Count 224 10^3/uL (130-400); Red Blood Cell Count 3.98 10^6/uL (4.70-6.10); Red Cell Dist. Width 13.2 % (11.5-14.5); White Blood Cell Count 7.8 10^3/uL (4.8-10.8)
[2024-07-11 08:38] LABS: Glucose - Point of Care 126 mg/dl (70-99)
[2024-07-11] MEDS: NOVOLOG FLEXPEN-LOW RESISTANCE SC ×2 (08:40→17:31)
[2024-07-11 08:44] LABS: Blood Urea Nitrogen 19 mg/dl (9-20); Calcium 9.9 mg/dl (8.4-10.2); Carbon Dioxide 28 mmol/L (22-30); Chloride 105 mmol/L (98-107); Estimated Creatinine Clearance 40 ml/min; Glucose 131 mg/dl (70-99); Potassium 4.4 mmol/L (3.5-5.1); Sodium 137 mmol/L (135-145); eGFR 55.19
[2024-07-11] MEDS: PROTONIX IV 40 MG IV ×2 (08:45→21:11)
[2024-07-11] MEDS: NSS (PRESERVATIVE FREE) 10 ML IV ×2 (08:45→21:11)
[2024-07-11] MEDS: GLUCOTROL XL (EXTENDED RELEASE) 5 MG PO (08:47)
[2024-07-11] MEDS: ZESTRIL 20 MG PO (08:47)
[2024-07-11] MEDS: PROSCAR 5 MG PO (08:47)
[2024-07-11] MEDS: FARXIGA 10 MG PO (08:47)
[2024-07-11 09:15] LABS: Glycohemoglobin (HgbA1c) 7.1 % (4.0-5.6)
--- NOTE | 2024-07-11 09:54 | W.PN.HOSP.TC ---
Today's Communication/Plan
-
Advancing diet. Monitor hemoglobin.
Assessment / Plan
Assessment / Plan
Physical exam:
General: Well Developed, Well Nourished and No Apparent Distress
HEENT: Normocephalic, Atraumatic and Moist Mucous Membranes
Respiratory: Clear to Auscultation; Negative Wheezes, Rales or Rhonchi
Cardiac: Regular Rhythm and S1/S2
GI: Soft, Nontender and Nondistended
Musculoskeletal: No Clubbing, No Cyanosis and No Edema
Neuro: Awake, Alert and Oriented
Psych: Calm
A/P:
Acute GI bleed:
Probably lower source but cannot rule out upper source. GI suspect diverticular bleed versus ischemic colitis.
Clear liquid diet and advance to full liquid diet today
Stop IV fluid
Vascular access
Monitor hemoglobin
PPI
GI consult appreciated
Plan for possible colonoscopy inpatient versus outpatient
Continue to follow-up GI recommendations
Acute blood loss anemia:
Hemoglobin 14.1--> 12.5 today
Continue to monitor hemoglobin
Renal insufficiency:
Creatinine 1.4--> 1.3 with IV fluids
Now encourage oral intake
Hypercalcemia:
Improved with hydration
Calcium 10.5--> 9.9
Hypertension:
Continue home antihypertensives.
Monitor blood pressure and adjust medications accordingly.
Hyperlipidemia:
Continue home statins
Diabetes mellitus type 2:
Diabetic diet
Will check blood sugars before meals and at bedtime
Will add insulin sliding scale
Will monitor blood sugar and adjust medications accordingly
Will update hemoglobin A1c-->7.1
Will continue home diabetic regimen
BPH:
Continue finasteride
DVT prophylaxis:
SCDs
CODE STATUS
Full code
Anticipated Discharge: 24 - 48 hours
Subjective/Interval History
-
Date of Service: July 11, 2024
No abdominal pain. No nausea vomiting. He had some bowel movement without blood today.
Objective Data
-
Labs:
Laboratory Results
07/11/24
07:14
WBC 7.8
Hgb 12.5 L
Hct 36.6 L
Plt Count 224
Sodium 137
Potassium 4.4
Chloride 105
Carbon Dioxide 28
BUN 19
Creatinine 1.3
Glucose 131 H
Calcium 9.9
Vital Signs:
Vital Signs
Temp Pulse Resp BP Pulse Ox
98.1 F 56 16 133/72 98
07/11/24 07:17 07/11/24 07:17 07/11/24 07:17 07/11/24 07:17 07/11/24 07:17
I&O
07/10/24 07/11/24 07/12/24
06:59 06:59 06:59
Intake Total 1919 / 1919
Output Total 675 / 675
Balance 1245 / 1245
--- NOTE | 2024-07-11 10:56 | W.PN.GI.CBS2 ---
Today's Communication / Plan
-
Full liquid diet
Monitor Hb
Assessment / Plan
-
79-year-old male with past medical history of hypertension, chronic low back pain, diabetes, hyperlipidemia, BPH, kidney stones, diverticulosis, history LA grade C erosive esophagitis (2020) who was on pantoprazole 40 mg daily and does not take any
NSAIDs who presents to the emergency room with acute onset of rectal bleeding. Asked to evaluate for the same. last night he awoke approximately 3 AM and thought he had gas. He went to use the restroom however passed bright red blood per rectum
and possibly clots. This happened approximately 3 more times before he proceeded to the emergency room. He states that while he was checking in he had another episode. He does not recall ever seeing any stool mixed in with this. He had 2 more
episodes while still in the ER. This happened over a duration of approximately 4 hours. He has not had any further episodes since approximately 7 AM. He has some mild left lower quadrant tenderness but no significant pain. Patient's vital signs
are stable. WBC 9.5, hemoglobin 14.9, hematocrit 43.9, MCV 95.0, MCH 32.3, platelet count 240, sodium 138, potassium 4.1, chloride 108, CO2 23, BUN 31, creatinine 1.4, glucose 182, total bilirubin 0.3, AST 24, ALT 21, alk phos 71. Rectal exam
performed by myself magalis red blood.
Impression:
-- Rectal bleeding. Clinically resolving now. Possible etiology-diverticular bleed versus ischemic colitis. Last colonoscopy 2018-diverticulosis.
--Mild left lower quadrant discomfort-resolved now
-- History of esophagitis
plan
Likely etiology of rectal bleeding-diverticular disease vs ischemic colitis. Hb relatively stable. Clinically resolving
Continue monitor Hb
Full liquid diet today
If patient continues to have significant rectal bleeding will consider CTA
Discussed about colonoscopy-inpatient versus outpatient. If patient remains in the hospital we will perform on Saturday
will follow
Total Time Spent with Patient (in minutes): 35
Subjective
Subjective
Date of Service: July 11, 2024
This a.m. BM was more brown in color. Denies any abdominal pain/nausea/vomiting.
Objective
Data Reviewed
Laboratory Data:
Laboratory Results
07/11/24 07:14
07/11/24 07:14
Laboratory Results
PT 13.6 Sec (11.4-14.6) 07/10/24 10:46
INR 1.06 07/10/24 10:46
Total Bilirubin 0.3 mg/dl (0.2-1.3) 07/10/24 05:26
AST 24 U/L (17-59) 07/10/24 05:26
ALT 21 U/L (0-50) 07/10/24 05:26
Alkaline Phosphatase 71 U/L (38-126) 07/10/24 05:26
Vital Signs and I&O:
Vital Signs
Temp Pulse Resp BP Pulse Ox
98.1 F 56 16 133/72 98
07/11/24 07:17 07/11/24 07:17 07/11/24 07:17 07/11/24 07:17 07/11/24 07:17
I&O
07/10/24 07/11/24 07/12/24
06:59 06:59 06:59
Intake Total 1919 / 1919
Output Total 675 / 675
Balance 1245 / 1245
Physical Exam
Physical Exam
GI: Soft, Non Distended and Non Tender
[2024-07-11 11:23] LABS: Glucose - Point of Care 170 mg/dl (70-99)
[2024-07-11] MEDS: NOVOLOG FLEXPEN-LOW RESISTANCE 1 UNITS SC (11:42)
[2024-07-11 15:49] VITALS: BP 156/78
[2024-07-11 17:21] LABS: Glucose - Point of Care 101 mg/dl (70-99)
[2024-07-11] MEDS: TYLENOL 650 MG PO (17:47)
[2024-07-11 21:06] VITALS: BP 148/77
[2024-07-11 21:06] LABS: Glucose - Point of Care 195 mg/dl (70-99)
[2024-07-11] MEDS: NORVASC 5 MG PO (21:11)
[2024-07-11 23:00] VITALS: BP 138/76
[2024-07-12 07:06] VITALS: BP 133/69
[2024-07-12 08:04] LABS: Glucose - Point of Care 156 mg/dl (70-99)
[2024-07-12] MEDS: NOVOLOG FLEXPEN-LOW RESISTANCE 1 UNITS SC (08:42)
[2024-07-12] MEDS: PROSCAR 5 MG PO (08:43)
[2024-07-12] MEDS: GLUCOTROL XL (EXTENDED RELEASE) 5 MG PO (08:43)
[2024-07-12] MEDS: NSS (PRESERVATIVE FREE) 10 ML IV ×2 (08:43→21:39)
[2024-07-12] MEDS: PROTONIX IV 40 MG IV ×2 (08:43→21:39)
[2024-07-12] MEDS: FARXIGA 10 MG PO (08:44)
[2024-07-12] MEDS: ZESTRIL 20 MG PO (08:44)
[2024-07-12 08:52] LABS: Hemoglobin 12.4 g/dL (13.0-18.0); Mean Corp Hgb Conc. 34.4 g/dL (33.0-37.0); Mean Corpuscular Hgb 31.7 pg (27.0-31.0); Mean Corpuscular Volume 92.1 fL (80.0-94.0); Mean Platelet Volume 10.1 fL (7.4-10.4); Platelet Count 238 10^3/uL (130-400); Red Blood Cell Count 3.91 10^6/uL (4.70-6.10); Red Cell Dist. Width 13.1 % (11.5-14.5)
--- NOTE | 2024-07-12 09:17 | W.PN.HOSP.TC ---
Today's Communication/Plan
-
NM bleeding scan today. PPI. Colonoscopy in a.m.
Assessment / Plan
Assessment / Plan
Physical exam:
General: Well Developed, Well Nourished and No Apparent Distress
HEENT: Normocephalic, Atraumatic and Moist Mucous Membranes
Respiratory: Clear to Auscultation; Negative Wheezes, Rales or Rhonchi
Cardiac: Regular Rhythm and S1/S2
GI: Soft, mild tender and Nondistended
Musculoskeletal: No Clubbing, No Cyanosis and No Edema
Neuro: Awake, Alert and Oriented
Psych: Calm
A/P:
Acute GI bleed:
GI suspect diverticular bleed versus ischemic colitis.
Clear liquid diet per GI today and n.p.o. tomorrow for procedure
Plan for nuclear bleeding scan today
Plan for colonoscopy tomorrow
Hemoglobin 12.4 today
Continue to monitor hemoglobin
Continue PPI
Acute blood loss anemia:
Hemoglobin 14.1--> 12.4 today
Continue to monitor hemoglobin
Renal insufficiency:
Creatinine 1.4--> 1.3 with IV fluids
Repeat BMP in a.m.
Now encourage oral intake
Hypercalcemia:
Improved with hydration
Calcium 10.5--> 9.9
Hypertension:
Continue home antihypertensives.
Monitor blood pressure and adjust medications accordingly.
Hyperlipidemia:
Continue home statins
Diabetes mellitus type 2:
Diabetic diet
Continue check blood sugars before meals and at bedtime
Continue add insulin sliding scale
Continue monitor blood sugar and adjust medications accordingly
Updated hemoglobin A1c-->7.1
Continue home diabetic regimen
BPH:
Continue finasteride
DVT prophylaxis:
SCDs
CODE STATUS
Full code
Anticipated Discharge: 24 - 48 hours
Subjective/Interval History
-
Date of Service: July 12, 2024
Patient had recurrent of bright blood per rectum last evening and continues to have rectal bleeding today. Some abdominal cramps. No chest pain or shortness of breath
Objective Data
-
Labs:
Laboratory Results
07/12/24
08:21
WBC 10.0
Hgb 12.4 L
Hct 36.0 L
Plt Count 238
Vital Signs:
Vital Signs
Temp Pulse Resp BP Pulse Ox
97.7 F 56 16 133/69 97
07/12/24 07:06 07/12/24 07:06 07/12/24 07:06 07/12/24 07:06 07/12/24 07:06
I&O
07/11/24 07/12/24 07/13/24
06:59 06:59 06:59
Intake Total 1920 / 1920 970 / 970
Output Total 675 / 675
Balance 1245 / 1245 970 / 970
--- NOTE | 2024-07-12 11:28 | PTCARENOTE ---
Pt had small BM w/ scant amount of blood.
[2024-07-12 11:47] LABS: Glucose - Point of Care 136 mg/dl (70-99)
[2024-07-12] MEDS: NOVOLOG FLEXPEN-LOW RESISTANCE SC ×2 (11:47→17:07)
[2024-07-12] MEDS: NULYTELY SOLUTION 4 LITERS PO (13:55)
--- NOTE | 2024-07-12 15:17 | W.PN.GI.CBS2 ---
Today's Communication / Plan
-
Bowel prep today
Colonoscopy tomorrow
Assessment / Plan
-
79-year-old male with past medical history of hypertension, chronic low back pain, diabetes, hyperlipidemia, BPH, kidney stones, diverticulosis, history LA grade C erosive esophagitis (2020) who was on pantoprazole 40 mg daily and does not take any
NSAIDs who presents to the emergency room with acute onset of rectal bleeding. Asked to evaluate for the same. last night he awoke approximately 3 AM and thought he had gas. He went to use the restroom however passed bright red blood per rectum
and possibly clots. This happened approximately 3 more times before he proceeded to the emergency room. He states that while he was checking in he had another episode. He does not recall ever seeing any stool mixed in with this. He had 2 more
episodes while still in the ER. This happened over a duration of approximately 4 hours. He has not had any further episodes since approximately 7 AM. He has some mild left lower quadrant tenderness but no significant pain. Patient's vital signs
are stable. WBC 9.5, hemoglobin 14.9, hematocrit 43.9, MCV 95.0, MCH 32.3, platelet count 240, sodium 138, potassium 4.1, chloride 108, CO2 23, BUN 31, creatinine 1.4, glucose 182, total bilirubin 0.3, AST 24, ALT 21, alk phos 71. Rectal exam
performed by myself magalis red blood.
Impression:
-- Rectal bleeding. Continues to have bleeding last night/this a.m. Possible etiology-diverticular bleed versus ischemic colitis. Last colonoscopy 2018-diverticulosis.
--Mild left lower quadrant discomfort-resolved now
-- History of esophagitis
plan
Likely etiology of rectal bleeding-diverticular disease vs ischemic colitis. Hb relatively stable.
Since patient continues to have rectal bleeding I recommend him having a colonoscopy tomorrow. Patient is agreeable
Bowel prep today
Continue monitor Hb
If severe bleeding will recommend bleeding scan or CTA
Total Time Spent with Patient (in minutes): 35
Subjective
Subjective
Date of Service: July 12, 2024
Patient had multiple bowel movements with blood last night. Tolerating liquid diet
Objective
Data Reviewed
Laboratory Data:
Laboratory Results
07/12/24 08:21
07/11/24 07:14
Laboratory Results
PT 13.6 Sec (11.4-14.6) 07/10/24 10:46
INR 1.06 07/10/24 10:46
Total Bilirubin 0.3 mg/dl (0.2-1.3) 07/10/24 05:26
AST 24 U/L (17-59) 07/10/24 05:26
ALT 21 U/L (0-50) 07/10/24 05:26
Alkaline Phosphatase 71 U/L (38-126) 07/10/24 05:26
Vital Signs and I&O:
Vital Signs
Temp Pulse Resp BP Pulse Ox
97.7 F 56 16 133/69 97
07/12/24 07:06 07/12/24 07:06 07/12/24 07:06 07/12/24 07:06 07/12/24 10:52
I&O
07/11/24 07/12/24 07/13/24
06:59 06:59 06:59
Intake Total 0 / 0 970 / 970
Output Total 675 / 675
Balance 1245 / 1245 970 / 970
Physical Exam
Physical Exam
GI: Soft, Non Distended and Non Tender
[2024-07-12 15:38] VITALS: BP 144/65
--- NOTE | 2024-07-12 16:14 | CM ---
met with patient at bedside.patient lives with his in ranch home ith 1 aman,his bed and bath is on the first level,he amb i and is I with his adl.his pc is dr davenport and he uses [facility] in [facility].he has never had a vn or been in ip rehab.
PMH:diabetes,htn,chronic low back pain
patient adm with rectal bleeding.monitor hgb,iv protonix,gi following,for colonoscopy tomorrow.patient is totally I.Plan :home with no needs.
[2024-07-12 16:56] LABS: Glucose - Point of Care 94 mg/dl (70-99)
[2024-07-12 21:11] LABS: Glucose - Point of Care 129 mg/dl (70-99)
[2024-07-12] MEDS: NORVASC 5 MG PO (21:38)
[2024-07-12 23:31] VITALS: BP 156/71
[2024-07-13] VITALS (7 sets, daily range): BP systolic 105–138; BP diastolic 55–69
--- NOTE | 2024-07-13 00:56 | PTCARENOTE ---
Pt with small amount of prep left, about 50-100cc. Pt tolerated the whole prep, no complaints of pain or nausea. Stool is liquid, still brown however starting to clear up at this time. Plan of care ongoing.
--- NOTE | 2024-07-13 08:08 | W.PN.HOSP.TC ---
Today's Communication/Plan
-
Colonoscopy today. Monitor hemoglobin
Assessment / Plan
Assessment / Plan
Physical exam:
General: Well Developed, Well Nourished and No Apparent Distress
HEENT: Normocephalic, Atraumatic and Moist Mucous Membranes
Respiratory: Clear to Auscultation; Negative Wheezes, Rales or Rhonchi
Cardiac: Regular Rhythm and S1/S2
GI: Soft, mild tender and Nondistended
Musculoskeletal: No Clubbing, No Cyanosis and No Edema
Neuro: Awake, Alert and Oriented
Psych: Calm
A/P:
Acute GI bleed:
GI suspect diverticular bleed versus ischemic colitis.
Plan for colonoscopy today
Hemoglobin 12 today
Continue to monitor hemoglobin
Continue PPI
Acute blood loss anemia:
Hemoglobin 14.1--> 12 today
Continue to monitor hemoglobin
Renal insufficiency:
Creatinine 1.4--> 1.3 with IV fluids
Now encourage oral intake when able to take oral
Hypercalcemia:
Improved with hydration
Calcium 10.5--> 9.9--> 10.1
Hypertension:
Continue home antihypertensives.
Monitor blood pressure and adjust medications accordingly.
Hyperlipidemia:
Continue home statins
Diabetes mellitus type 2:
Diabetic diet
Continue check blood sugars before meals and at bedtime
Continue add insulin sliding scale
Continue monitor blood sugar and adjust medications accordingly
Updated hemoglobin A1c-->7.1
Continue home diabetic regimen
BPH:
Continue finasteride
DVT prophylaxis:
SCDs
CODE STATUS
Full code
Anticipated Discharge: Within 24 hours
Subjective/Interval History
-
Date of Service: July 13, 2024
Patient did bowel prep last night. No chest pain or shortness of breath
Objective Data
-
Labs:
Laboratory Results
07/13/24
06:00
WBC Pending
Hgb Pending
Hct Pending
Plt Count Pending
Sodium Pending
Potassium Pending
Chloride Pending
Carbon Dioxide Pending
BUN Pending
Creatinine Pending
Glucose Pending
Calcium Pending
Vital Signs:
Vital Signs
Temp Pulse Resp BP Pulse Ox
97.5 F 59 16 156/71 96
07/12/24 23:31 07/12/24 23:31 07/12/24 23:31 07/12/24 23:31 07/12/24 23:31
I&O
07/12/24 07/13/24 07/14/24
06:59 06:59 06:59
Intake Total 970 / 970 730 / 730
Balance 970 / 970 730 / 730
[2024-07-13 08:15] LABS: Glucose - Point of Care 114 mg/dl (70-99)
[2024-07-13] MEDS: NOVOLOG FLEXPEN-LOW RESISTANCE SC ×2 (08:39→12:22)
[2024-07-13] MEDS: NSS (PRESERVATIVE FREE) 10 ML IV (08:40)
[2024-07-13] MEDS: PROTONIX IV 40 MG IV (08:40)
[2024-07-13] MEDS: FLUSH (NSS) 1 FLUSH IV (08:40)
[2024-07-13] MEDS: NSS 1000 IV (08:41)
[2024-07-13] MEDS: ZESTRIL 20 MG PO (08:43)
[2024-07-13] MEDS: PROSCAR 5 MG PO (08:43)
[2024-07-13] MEDS: MYRBETRIQ EXTENDED RELEASE 50 MG PO (08:45)
[2024-07-13 09:02] LABS: % Basophils 0.6 % (0-2); % Immature Granulocytes 0.5 % (0-0.5); % Lymphocytes 22.8 % (20.5-51.1); % Monocytes 11.3 % (1.7-9.3); % Neutrophils 60.8 % (42.2-75.2); Absolute Basophils 0.1 10^3/uL (0-0.2); Absolute Eosinophils 0.4 10^3/uL (0-0.7); Absolute Neutrophils 5.3 10^3/uL (1.4-6.5); Hematocrit 34.1 % (39.0-52.0); Mean Corp Hgb Conc. 35.2 g/dL (33.0-37.0); Mean Corpuscular Hgb 33.1 pg (27.0-31.0); Mean Corpuscular Volume 93.9 fL (80.0-94.0); Mean Platelet Volume 10.5 fL (7.4-10.4); Nucleated Red Blood Cells % 0 % (-); Platelet Count 227 10^3/uL (130-400); Red Blood Cell Count 3.63 10^6/uL (4.70-6.10); Red Cell Dist. Width 12.9 % (11.5-14.5); White Blood Cell Count 8.7 10^3/uL (4.8-10.8)
[2024-07-13 09:34] LABS: Blood Urea Nitrogen 17 mg/dl (9-20); Calcium 10.1 mg/dl (8.4-10.2); Carbon Dioxide 25 mmol/L (22-30); Chloride 105 mmol/L (98-107); Estimated Creatinine Clearance 40 ml/min; Glucose 123 mg/dl (70-99); Potassium 4.2 mmol/L (3.5-5.1); Sodium 138 mmol/L (135-145); eGFR 55.19
--- NOTE | 2024-07-13 10:50 | CM ---
Patient seen bedside, reports no needs to CM at this time, awaiting colonoscopy. CM will continue to follow for all discharge planning needs.
Plan; home no needs likely.
[2024-07-13 12:01] LABS: Glucose - Point of Care 111 mg/dl (70-99)
[2024-07-13] MEDS: GLUCOTROL XL (EXTENDED RELEASE) PO (12:35)
[2024-07-13] MEDS: FARXIGA PO (12:35)
--- NOTE | 2024-07-13 14:33 | PTCARENOTE ---
received post colonoscopy- assisted to bed. no complaints. vitals noted. call perry in reach. patient expecting to go home today. plan of care on going.
[2024-07-13 16:35] LABS: Glucose - Point of Care 161 mg/dl (70-99)
--- NOTE | 2024-07-13 18:14 | W.DCSUMMARY ---
Discharge Summary
Discharge Data
Date of Admission: 07/10/24
Date of Discharge: 07/13/24
-
Pending Results: No
Hospital Course
Patient 79 years old male history of hypertension, diabetes mellitus, hyperlipidemia, chronic lower back pain, BPH, diverticular disease, esophagitis, presented to the hospital with bright blood per rectum. Patient was admitted to the medical
floor. IV fluids, PPI, hemoglobin was monitored. GI consulted. Concerns for ischemic colitis versus diverticular disease. GI did a colonoscopy on 07/13 and it was found to have multiple large mouth and small mouth diverticula in the entire colon
as well as nonbleeding internal hemorrhoids. Patient tolerated diet after procedure. Hemoglobin 12 upon discharge GI cleared for discharge today. Patient will be discharged in stable condition today
Discharge duration: 35 minutes
Discharge Plan
-
Patient Disposition: Home (Routine Discharge)
Discharge Diagnosis/Procedures: Gi bleed presumed diverticular
Condition: Fair
Diet: Low Residue
Activity: As tolerated
Driving Restrictions: No driving for 24 hours
Bathing Restrictions: OK to Shower
Referrals:
Sadi Kuo MD [Family Provider] - in one week
Jg Guzmán MD [Active] -
Prescriptions:
Continued
lisinopril 20 MG tablet
20 mg PO DAILY
finasteride 5 MG tablet
5 mg PO DAILY
fenofibric acid (choline) 135 MG capsule,delayed release(DR/EC)
135 mg PO DAILY
mirabegron [Myrbetriq] 50 MG tablet extended release 24 hr
50 mg PO DAILY
amlodipine 5 MG tablet
5 mg PO HS
pantoprazole 40 MG tablet,delayed release (DR/EC)
40 mg PO DAILY
glipizide 5 mg Tablet Extended Release 24hr
5 mg PO DAILY
acetaminophen [Tylenol Extra Strength] 500 mg Tablet
1,000 mg PO Q6HPRN PRN (Reason: mild pain)
magnesium oxide 400 mg (241.3 mg magnesium) Tablet
400 mg PO DAILY
coenzyme Q10 [CoQ-10] 100 mg Capsule
100 mg PO DAILY
Systane (PF) 0.4-0.3 % Dropperette
1 drp BOTH EYES BIDPRN PRN (Reason: dry eyes)
PreserVision AREDS 4,296 mcg-226 mg-90 mg Capsule
1 cap PO BID
icosapent ethyl [Vascepa] 1 gram Capsule
2 g PO BID
dapagliflozin propanediol [Farxiga] 10 mg Tablet
10 mg PO DAILY
Cbd capsule
50 mg PO DAILYPRN PRN (Reason: discomfort)
fluticasone propionate 50 mcg/actuation [place],Suspension
1 spray INTRANASAL DAILYPRN PRN (Reason: congestion)
Discharge Orders:
Discharge Patient (As Directed); Ordered 07/13/24
Ordered By: Rahul Dyson
Discharge Date and Time
Discharge Date/Time: 07/13/24 18:04
Print Language: CENTRAL AFRICAN
== END 2024-07-13 18:04 | disposition home or self-care (01) | DRG 378 ==
LOC: 4 EAST ACU 11:32
PROVIDERS: Nurse Practitioner; Student in an Organized Health Care Education/Training Program; ADMITTING PHYSICIAN Hospitalist; CONSULT PHYSICIAN Internal Medicine Gastroenterology; EMERGENCY PHYSICIAN Student in an Organized Health Care Education/Training Program; FAMILY PHYSICIAN Family Medicine
PROC: 0DJD8ZZ Inspection of Lower Intestinal Tract, Via Natural or Artificial Opening Endoscopic (ICD-10-PCS; 2024-07-13)
DX: K57.31 Diverticulosis of large intestine without perforation or abscess with bleeding (principal); D62 Acute posthemorrhagic anemia; E11.9 Type 2 diabetes mellitus without complications; E78.00 Pure hypercholesterolemia, unspecified; K64.8 Other hemorrhoids; I10 Essential (primary) hypertension; E83.52 Hypercalcemia; K21.9 Gastro-esophageal reflux disease without esophagitis; G89.29 Other chronic pain; N40.0 Benign prostatic hyperplasia without lower urinary tract symptoms; Z87.442 Personal history of urinary calculi; Z87.19 Personal history of other diseases of the digestive system; Z91.030 Bee allergy status; Z91.018 Allergy to other foods; Z87.11 Personal history of peptic ulcer disease
CPT/HCPCS: 80048; 80053; 82962; 83036; 85025; 85027; 85610; 86850; 86900; 86901; 96365; 96366; 99285